=== PATIENT | female | born 1980 | race Caucasian/White ===

== ENCOUNTER → 2025-03-26 | Outpatient (CLI) | payer OTHER, SELFPAY ==
--- OUTSIDE RECORDS SUMMARY | 2025-03-26 22:18 | XMS RPT_ITS | CCD ---
Author Organization [facility] Inform ion Partnership [facility] Care Team Providers Care Pen Rider Name Role Phone Pcp, No Primary Care Provider Robbin Zambrano APRN.Juan Carlos GARRETT Primary Care Provider Gabriel Cueva DO Primary Care Provider Juan Carlos Zambrano APRN.CNP Primary Care Provider MEHREEN KESSLER Attending GABRIEL Monae Primary Care Unavailable Allergies Allergy Classification Reported Allergen(s) Allergy Type Date of Onset Reaction(s) Facility (8 sources) Bees Propensity to adverse reactions [address], [address] [facility] Work Phone: (5 sources) Shellfish Drug Allergy [address] [facility] Work Phone: (2 sources) Shellfish-Deriv ed Products Drug Allergy 3 [facility] Medications Current Medications Medication Drug Class(es) Dates Sig (Normalized) Sig (Original) Amphetamine / Dextroamphetamine (2 sources) Central Nervous System Stimulant Amphetamine-Dextr oamphetamine (ADDERALL PO) Take by mouth. 30mg PO in AM, 20mg PO PM Active busPIRone hydrochloride 5 mg oral tablet (6 sources) Start: 08-28-2022 take 1 tablet by mouth three times daily busPIRone (BUSPAR) 5 mg tablet Indications: Generalized anxiety disorder Take 1 tablet by mouth three times daily. 90 tablet 2 08/28/2022 Active Start: 07-07-2021 End: 08-28-2022 busPIRone (BUSPAR) 5 mg tabl et 10 mg twice daily. 0 07/07/2021 08/28/2022 Discontinued Comment on above: Take 1 tablet by alysha three times daily. 10 mg twice daily. metroNIDAZOLE 500 mg oral tablet (2 sources) Nitroimidazole Antimicrobial Start: 08-28-19 End: 09-04-19 take 1 tablet by mouth twice daily metroNIDAZOLE (FLAGYL) 500 mg tablet Indications: Trichomonas infection Take 1 tablet by mouth twice daily for 7 days. 14 tablet 0 08/28/2022 09/04/2022 Active Comment on above: Take 1 tablet by alysha twice daily for 7 days. omeprazole 40 mg delayed release oral capsule (7 sources) Proton Pump Inhibitor Start: 08-28-19 take 1 capsule by mouth once daily omeprazole (PRILOSEC) 40 mg capsule Take 1 capsule by mouth once daily. 30 capsule 2 08/28/2022 Active OMEPRAZOLE PO Ta ke by mouth. Active Comment on above: Take 1 capsule by mo [facility] once daily. Completed/Discontinued Medications Medication Drug Class(es) Dates Sig (Normalized) Sig (Original) 200 actuat albuterol 0.09 mg/actuat metered dose inhaler (4 sources) beta2-Adrenergic Agonist Start: 02-15-2007 End: 08-28-2022 albuterol 90 mcg/Actuation INHALATION Aero amphetamine aspartate 5 mg / amphetamine sulfate 5 mg / dextroamphetamine saccharate 5 mg / dextroamphetamine sulfate 5 mg oral tablet (1 source) Central Nervous System Stimulant Start: 06-07-2021 End: 08-28-2022 dextroamphetamine-am phetamine (ADDERALL) 20 mg tablet diphenhydrAMINE (2 sources) Histamine-1 Receptor Antagonist End: 02-01-2024 diphenhydrAMINE HCl (BENADRYL ALLERGY PO) Take by mouth. 02/01/2024 Discontinued (Entered in error) levonorgestrel 0.202995 mg/hr intrauterine system (4 sources) Progestin, Progestin-contain ing Intrauterine Device Start: 10-17-2007 End: 08-28-2022 levonorgestrel(MIREN A 20 MCG/24 HR INTRAUTERINE DEVICE) Indications: Encounter for insertion or removal of intrauterine contraceptive device Use as directed. 1 0 10/17/2007 08/28/2022 Discontinued Comment on above: Use as directed. levothyroxine (2 sources) l-Thyroxine End: 02-01-2024 Levothyroxine Sodium (SYNTHROID PO) Take by mouth. 02/01/2024 Discontinued (Entered in error) liothyronine (2 sources) l-Triiodothyronin e End: 02-01-2024 Liothyronine Sodium (CYTOMEL PO) Take by mouth. 02/01/2024 Discontinued (Entered in error) Lisdexamfetamine (2 sources) Central Nervous System Stimulant End: 02-01-2024 Lisdexamfetamine Dimesylate (VYVANSE PO) Take by mouth. 02/01/2024 Discontinued (Entered in error) pantoprazole (2 sources) Proton Pump Inhibitor End: 02-01-2024 Pantoprazole Sodium (PROTONIX PO) Take by mouth. 02/01/2024 Discontinued (Entered in error) Sgfgyook-Iu-Vqv-Fe-FA ORAL Tab (4 sources) Start: 02-15-2007 End: 08-28-2022 take 1 tablet by mouth once daily Gnjqudjn-Kj-Lnt-Fe-F A ORAL Tab TAKE ONE DAILY 0 02/15/2007 08/28/2022 Discontinued Start: 02-15-2007 take 1 tablet by alysha th once daily Bzlonbaq-It-Wtk-Fe-FA ORAL Tab TAKE ONE DAILY 0 02/15/2007 Active Comment on above: TAKE ONE DAILY sucralfate 1000 mg oral tablet (2 sources) Aluminum Complex Start: 02-01-2024 End: 02-01-2024 1 g, Oral, Once, On Sun02/01/24 at 1945, For 1 dose, Substituted for Sucralfate suspension. Give on an empty stomach (1 hr before meals, at bedtime). Separate all other meds by at least 2 hours (exception: antacids may be given only 30 minutes apart). Problems Active Problems Problem Classification Problem Date Documented Date Episodic/Chronic Abdominal pain (5 sources) Epigastric pain; Translations: [Epigastric pain] Onset: 02-01-2024 Episodic Anxiety disorders (6 sources) Generalized anxiety disorder; Translations: [Generalized anxiety disorder] Onset: 08-28-2022 Chronic Attention-deficit, conduct, and disruptive behavior disorders (6 sources) Attention deficit hyperactivity disorder; Translations: [Attention-deficit hyperactivity disorder, unspecified type] Onset: 08-28-2022 Chronic Menstrual disorders (2 sources) Dysmenorrhea; Translations: [Dysmenorrhea, unspecified] Onset: 06-21-2020 10-24-2022 Chronic Other infections; including parasitic (1 source) Infection by Trichomonas; Translations: [Trichomoniasis, unspecified] Episodic Other nutritional; endocrine; and metabolic disorders (2 sources) Body mass index 40+ - severely obese; Translations: [Body mass index (BMI) 40.0-44.9, adult] Onset: 06-21-2020 05-07-2022 Chronic Other screening for suspected conditions (not mental disorders or infectious disease) (10 sources) Patient encounter status; Translations: [Encounter for other screening for malignant neoplasm of breast] Episodic Residual codes; unclassified (1 source) Family history of cancer of colon; Translations: [Family history of malignant neoplasm of digestive organs] Episodic Past or Other Problems Problem Classification Problem Date Documented Da te Episodic/Chronic Other complications of (8 sources) High risk ; Translations: [Supervision of high risk , unspecified, unspecified trimester] Onset: 02-26-2007 02-26-2007 Episodic Other and delivery including normal (8 sources) Normal in primigravida; Translations: [Encounter for supervision of normal first , unspecified trimester] Onset: 02-15-2007 02-15-2007 Episodic Results Test Name Value Interpretation Reference Range Facil ity CBC W Auto Differential pane l (Bld)on 02-01-2024 Basophils (Bld) [#/Vol] 0.0 10*3/uL 0.0 - 0.2 10*3/uL [facility] Basophils/100 WBC (Bld) 0.2 % 0.0 - 2.0 % [facility] Eosinophils (Bld) [#/Vol] 0.0 10*3/uL 0.0 - 0.5 10*3/uL [facility] Eosinophils/100 WBC (Bld) 0.2 % 0.0 - 6.0 % [facility] Erythrocyte distribution width (RBC) [Ratio] 13.2 % 11.5 - 15.0 % [facility] Hematocrit (Bld) [Volume fraction] 46.0 % 35.0 - 47.0 % [facility] Hemoglobin (Bld) [Mass/Vol] 15.5 g/dL 11.7 - 16.0 g/dL [facility] Immature granulocytes (Bld) [#/Vol] 0.1 10*3/uL High NINF - 0.1 10*3/uL [facility] Immature granulocytes/100 WBC (Bld) 0.4 % 0.0 - 2.0 % [facility] Interpretation and review of laboratory results Abnormal [facility] Lymphocytes (Bld) [#/Vol] 1.7 10*3/uL 1.0 - 4.3 10*3/uL [facility] Lymphocytes/100 WBC (Bld) 10.8 % Low 15.0 - 45.0 % [facility] MCH (RBC) [Entitic mass] 29.7 pg 26.0 - 34.0 pg [facility] MCHC (RBC) [Mass/Vol] 33.7 % 30.5 - 36.0 % [facility] MCV (RBC) [Entitic vol] 88.1 fL 77.0 - 99.0 fL [facility] Monocytes (Bld) [#/Vol] 0.8 10*3/uL 0.0 - 0.9 10*3/uL [facility] Monocytes/100 WBC (Bld) 5.2 % 5.0 - 13.0 % [facility] Neutrophils (Bld) [#/Vol] 13.4 10*3/uL High 1.8 - 7.5 10*3/uL [facility] Neutrophils/100 WBC (Bld) 83.2 % High 38.0 - 82.0 % [facility] Nucleated RBC/100 WBC (Bld) [Ratio] 0.0 % [facility] Platelet mean volume (Bld) [Entitic vol] 11.1 fL 9.0 - 12.7 fL [facility] Comment on above: MPV is a calculated measurement using platelet volume ratio Platelets (Bld) [#/Vol] 186 10*3/uL 140 - 440 10*3/uL [facility] RBC (Bld) [#/Vol] 5.22 10*6/uL High 3.80 - 5.2 0 10*6/uL [facility] WBC (Bld) [#/Vol] 16.1 10*3/uL High 3.6 - 10.7 10*3/uL [facility] CBC WITH AUTO DIFFERENTIALon 02-01-2024 Basophils (Bld) [#/Vol] 0.0 10*3/uL Normal 0.0-0.2 [facility] Comment on above: Performed By: #### L [id number] #### Cad Operator: TERENCE SANABRIA ([id number]) MICHELLE DOMINGUEZ RITTMAN (SWRLAB) [address] [place] [address] Basophils/100 WBC (Bld) 0.2 % Normal 0.0-2.0 [facility] Comment on above: Performed By: #### L [id number] #### Cad Operator: TERENCE SANABRIA ([id number]) [facility] (SWRLAB) [address] [place] [address] Eosinophils (Bld) [#/Vol] 0.0 10*3/uL Normal 0.0-0.5 [facility] Comment on above: Performed By: #### L [id number] #### Cad Operator: TERENCE SANABRIA ([id number]) [facility] DOMINGUEZ [facility]ITTMAN (SWRLAB) [address] [place] [address] Eosinophils/100 WBC (Bld) 0.2 % Normal 0.0-6.0 [facility] Comment on above: Performed By: #### L [id number] #### Cad Operator: TERENCE SANABRIA ([id number]) MICHELLE DOMINGUEZ RITTMAN (SWRLAB) [address] [place] [address] Erythrocyte distribution width (RBC) [Ratio] 13.2 % Normal 11.5-15.0 [facility] Comment on above: Performed By: #### L [id number] #### Cad Operator: TERENCE SANABRIA ([id number]) [facility] DOMINGUEZ RITTMAN (SWRLAB) [address] [place] [address] Hematocrit (Bld) [Volume fraction] 46.0 % Normal 35.0-47.0 [facility] Comment on above: Performed By: #### L [id number] #### Cad Operator: TERENCE SANABRIA ([id number]) [facility] (SWRLAB) [address] [place] [address] Hemoglobin (Bld) [Mass/Vol] 15.5 g/dL Normal 11.7-16.0 [facility] Comment on above: Performed By: #### L [id number] #### Cad Operator: TERENCE SANABRIA ([id number]) [facility] (SWRLAB) [address] [place] [address] IMMATURE GRANS % 0.4 % Normal 0.0-2.0 [facility] Comment on above: Performed By: #### L [id number] #### Cad Operator: TERENCE SANABRIA ([id number]) [facility]INGUE[facility]ITTM[facility] (SWRLAB) [address] [place] [address] IMMATURE GRANS ABSOLUTE 0.1 10*3/uL High <0.1 [facility] Comment on above: Performed By: #### L [id number] #### Cad Operator: TERENCE SANABRIA ([id number]) [facility] (SWRLAB) [address] [place] [address] Lymphocytes (Bld) [#/Vol] 1.7 10*3/uL Normal 1.0-4.3 [facility] Comment on above: Performed By: #### L [id number] #### Cad Operator: TERENCE SANABRIA ([id number]) [facility] BOLIVARANGELICA RITTMAN (SWRLAB) [address] [place] [address] Lymphocytes/100 WBC (Bld) 10.8 % Low 15.0-45.0 [facility] Comment on above: Performed By: #### L [id number] #### Cad Operator: TERENCE SANABRIA ([id number]) [facility] (SWRLAB) [address] [place] [address] MCH (RBC) [Entitic mass] 29.7 pg Normal 26.0-34.0 [facility] Comment on above: Performed By: #### L [id number] #### Cad Operator: TERENCE SANABRIA ([id number]) [facility] (SWRLAB) [address] [place] [address] MCHC 33.7 % Normal 30.5-36.0 [facility] Comment on above: Performed By: #### L [id number] #### Cad Operator: TERENCE SANABRIA ([id number]) MICHELLE DOMINGUEZ RITTMAN (SWRLAB) [address] [place] [address] MCV (RBC) [Entitic vol] 88.1 fL Normal 77.0-99.0 [facility] Comment on above: Performed By: #### L [id number] #### Cad Operator: TERENCE SANABRIA ([id number]) [facility]UE[facility] (SWRLAB) [address] [place] [address] Monocytes (Bld) [#/Vol] 0.8 10*3/uL Normal 0.0-0.9 [facility] Comment on above: Performed By: #### L [id number] #### Cad Operator: TERENCE SANABRIA ([id number]) [facility] DOMINGUEZ RITTMAN (SWRLAB) [address] [place] [address] [place] Monocytes/100 WBC (Bld) 5.2 % Normal 5.0-13.0 [facility] Comment on above: Performed By: #### L [id number] #### Cad Operator: TERENCE SANABRIA ([id number]) MICHELLE DOMINGUEZ RITTMAN (SWRLAB) [address] [place] [address] [place] NEUTROPHILS ABSOLUTE 13.4 10*3/uL High 1.8-7.5 [facility] Comment on above: Performed By: #### L [id number] #### Cad Operator: TERENCE SANABRIA ([id number]) MICHELLE DOMINGUEZ RITTMAN (SWRLAB) [address] [place] [address] [place] Neutrophils/100 WBC (Bld) 83.2 % High 38.0-82.0 [facility] Comment on above: Performed By: #### L [id number] #### Cad Operator: TERENCE SANABRIA ([id number]) [facility]UE[facility]IT[facility] (SWRLAB) [address] [place] [address] NRBC 0.0 /100 WBCs Normal 0.0-2.0 [facility] Comment on above: Performed By: #### L [id number] #### Cad Operator: TERENCE SANABRIA ([id number]) [facility]UE[facility] RITTM[facility] (SWRLAB) [address] [place] [address] Platelet mean volume (Bld) [Entitic vol] 11.1 fL Normal 9.0-12.7 [facility] Comment on above: Result Comment: MPV is a calculated measurement using platelet volume ratio Performed By: #### L [id number] #### Cad Operator: TERENCE SANABRIA ([id number]) [facility]UE[facility] (SWRLAB) [address] [place] [address] [place] Platelets (Bld) [#/Vol] 186 10*3/uL Normal 140-440 [facility] Comment on above: Performed By: #### L [id number] #### Cad Operator: TERENCE SANABRIA ([id number]) [facility]UE[facility] (SWRLAB) [address] [place] [address] [place] RBC (Bld) [#/Vol] 5.22 10*6/uL High 3.80-5.20 [facility] Comment on above: Performed By: #### L [id number] #### Cad Operator: TERENCE SANABRIA ([id number]) [facility]UE[facility] (SWRLAB) [address] [place] [address] [place] WBC (Bld) [#/Vol] 16.1 10*3/uL High 3.6-10.7 [facility] Comment on above: Performed By: #### L [id number] #### Cad Operator: TERENCE SANABRIA ([id number]) [facility] DOMINGUE[facility] RITTM[facility] (SWRLAB) [address] [place] [address] COMPREHENSIVE METABOLIC PANE Lazaro 02-01-2024 Albumin [Mass/Vol] 4.6 g/dL Normal 3.5-5.0 [facility] Comment on above: Performed By: #### Margarita JUARES, LAB99, [id number] #### Cad Operator: TERENCE SANABRIA ([id number]) [facility] BOLIVARANGELICA RITTMAN (SWRLAB) [address] [place] [address] ALP [Catalytic activity/Vol] 53 U/L Normal 38-126 [facility] Comment on above: Performed By: #### Margarita JUARES, LAB99, [id number] #### Cad Operator: TERENCE SANABRIA ([id number]) [facility] (SWRLAB) [address] [place] [address] ALT [Catalytic activity/Vol] 28 U/L Normal 0-34 [facility] Comment on above: Performed By: #### Margarita JUARES, LAB99, [id number] #### Cad Operator: TERENCE SANABRIA ([id number]) [facility] (SWRLAB) [address] [place] [address] Anion gap [Moles/Vol] 11 mmol/L Normal 3-13 [facility] Comment on above: Performed By: #### Margarita JUARES, LAB99, [id number] #### Cad Operator: TERENCE SANABRIA ([id number]) [facility] BOLIVARANGELICA RITTMAN (SWRLAB) [address] [place] [address] AST [Catalytic activity/Vol] 43 U/L Normal 15-46 [facility] Comment on above: Performed By: #### Margarita JUARES, LAB99, [id number] #### Cad Operator: TERENCE SANABRIA ([id number]) [facility] (SWRLAB) [address] [place] [address] Bilirubin [Mass/Vol] 1.2 mg/dL Normal 0.2-1.3 [facility] Comment on above: Performed By: #### Margarita JUARES, LAB99, [id number] #### Cad Operator: TERENCE SANABRIA ([id number]) [facility] (SWRLAB) [address] [place] [address] [place] Calcium [Mass/Vol] 9.6 mg/dL Normal 8.4-10.4 [facility] Comment on above: Performed By: #### Margarita AB17, LAB99, [id number] #### Cad Operator: TERENCE SANABRIA ([id number]) [facility] (SWRLAB) [address] [place] [address] [place] Chloride [Moles/Vol] 102 mmol/L Normal 98-107 [facility] Comment on above: Performed By: #### Margarita JUARES, LAB99, [id number] #### Cad Operator: TERENCE SANABRIA ([id number]) [facility] BOLIVARANGELICA RITTMAN (SWRLAB) [address] [place] [address] [place] CO2 [Moles/Vol] 22 mmol/L Normal 22-30 [facility] Comment on above: Performed By: #### Margarita HANKS17, LAB99, [id number] #### Cad Operator: TERENCE SANABRIA ([id number]) [facility] DOMINGUEZ RITTMAN (SWRLAB) [address] [place] [address] [place] Creatinine [Mass/Vol] 0.92 mg/dL Normal 0.52-1.04 [facility] Comment on above: Performed By: #### Margarita AB17, LAB99, [id number] #### Cad Operator: TERENCE SANABRIA ([id number]) [facility] DOMINGUE[facility] RITTMAN (SWRLAB) [address] [place] [address] [place] GLOMERULAR FILTRATION RATE ML/MIN/1.73 SQ M.PREDICTED 79.9 mL/min/1.73m*2 Normal >60.0 [facility] Comment on above: Result Comment: Calc ulation based on the Chronic Kidney Disease Epidemiology Collaboration (CKD-EPI) equation refit without adjustment for race Performed By: #### Margarita AB17, LAB99, [id number] #### Cad Operator: TERENCE SANABRIA ([id number]) [facility] (SWRLAB) [address] Glucose [Mass/Vol] 108 mg/dL High 70-100 [facility] Comment on above: Performed By: #### Margarita JUARES, LAB99, [id number] #### Cad Operator: TERENCE SANABRIA ([id number]) [facility] DOMINGUEZ RITTMAN (SWRLAB) [address] Potassium [Moles/Vol] 5.3 mmol/L High 3.5-5.1 [facility] Comment on above: Performed By: #### Margarita JUARES, LAB99, [id number] #### Cad Operator: TERENCE SANABRIA ([id number]) [facility] DOM[facility]UE[facility] RITTM[facility] (SWRLAB) [address] [place] [address] Protein [Mass/Vol] 8.2 g/dL Normal 6.3-8.2 [facility] Comment on above: Performed By: #### Margarita JUARES, LAB99, [id number] #### Cad Operator: TERENCE SANABRIA ([id number]) [facility] (SWRLAB) [address] [place] [address] Sodium [Moles/Vol] 135 mmol/L Normal 135-145 [facility] Comment on above: Performed By: #### Margarita JUARES LAB99, [id number] #### Cad Operator: TERENCE SANABRIA ([id number]) [facility] DOM[facility]TM[facility] (SWRLAB) [address] [place] [address] Urea nitrogen [Mass/Vol] 15 mg/dL Normal 7-17 [facility] Comment on above: Performed By: #### Margarita JUARES, LAB99, [id number] #### Cad Operator: TERENCE SANABRIA ([id number]) [facility] (SWRLAB) [address] [place] [address] Comprehensive metabolic 1998 panelon 02-01-2024 Albumin [Mass/Vol] 4.6 g/dL 3.5 - 5.0 g/dL [facility] ALP [Catalytic activity/Vol] 53 U/L 38 - 126 U/L [facility] ALT [Catalytic activity/Vol] 28 U/L 0 - 34 U/L [facility] Anion gap [Moles/Vol] 11 mmol/L 3 - 13 mmol/L [facility] AST [Catalytic activity/Vol] 43 U/L 15 - 46 U/L [facility] Bilirubin [Mass/Vol] 1.2 mg/dL 0.2 - 1.3 mg/dL [facility] Calcium [Mass/Vol] 9.6 mg/dL 8.4 - 10. 4 mg/dL [facility] Chloride [Moles/Vol] 102 mmol/L 98 - 107 mmol/L [facility] CO2 [Moles/Vol] 22 mmol/L 22 - 30 mmol/L [facility] Creatinine [Mass/Vol] 0.92 mg/dL 0.52 - 1.04 mg/dL [facility] GFR/1.73 sq M.predicted MDRD (S/P/Bld) [Vol rate/Area] 79.9 mL/min/{1.73_m2} - PINF [facility] Comment on above: Calculation based on the Chronic Kidney Disease Epidemiology Collaboration (CKD-EPI) equation refit without adjustment for race Glucose [Mass/Vol] 108 mg/dL High 70 - 100 mg/dL [facility] Interpretation and review of laboratory results Abnormal [facility] Potassium [Moles/Vol] 5.3 mmol/L High 3.5 - 5.1 mmol/L [facility] Protein [Mass/Vol] 8.2 g/dL 6.3 - 8.2 g/dL [facility] Sodium [Moles/Vol] 135 mmol/L 135 - 145 mmol/L [facility] Urea nitrogen [Mass/Vol] 15 mg/dL 7 - 17 mg/dL [facility] ED Nursing Noteon 02-01-2024 ED Nursing Note Pt to ER with complaint of epigastric pain since 1pm today. Crampy pain that waxes and wanes with some nausea, no vomiting. Pt felt like she might pass out when she was getting in the car, but does not feel like that at this time. Pain 2/10 now, 10/10 earlier. Denies any radiation of pain. Pt ambulatoy on arrival with steady gait. Alert and oriented x 4. Skin warm and dry. Respirations even and unlabored. @ bedside. Call light in reach [facility] ED Provider Noteon ED Provider Note EMERGENCY DEPARTMENT ENCOUNTER Pt Name: Sneha De La Fuente Birthdate 1980 Date of evaluation: 02/01/2024 ED Provider: Mehreen Kessler DO CHIEF COMPLAINT Chief Complaint Patient presents with Abdominal Pain Nausea HISTORY OF PRESENT ILLNESS (Location/Symptom, Timing/Onset, Context/Setting, Quality, Duration, Modifying Factors, Severity) Note limiting factors. I wore appropriate PPE for the entirety of this encounter. HPI Sneha De La Fuente is a 43 y.o. who presents to the emergency department for resolved abdominal pain and nausea. Patient endorsing around lunchtime today eating ice cream and approximately an hour afterwards started to have epigastric burning/twisting sensation severe in nature for several hours without remittance associated with nausea sweatiness dizziness and general malaise. Patient has not had anything for symptom control. Patient endorsing intermittent waves of symptoms but symptoms have resolved. She has a history of GERD and peptic ulcer disease on omeprazole follows with gastroenterology. Abdominal surgical historyincludes tubal ligation. She denies any fevers, vomiting, diarrhea, UTI symptoms personal history of CAD, chest pain, family history of CAD, smoking history or exertional component. Nursing Notes were reviewed. Limitations to history: Outside historians: REVIEW OF SYSTEMS Review of Systems Pertinent positives and negatives as per HPI PAST MEDICAL HISTORY Past Medical History: Diagnosis Date Anxiety History of dilatation and curettage 09/09/2020 Hysteroscopy. Dilatation and curettage. Ablation Patient denies medical problems PONV (postoperative nausea and vomiting) Tubal ligation status SCHEDULED FOR THE SURGERY ON 04/26/2018 SURGICAL HISTORY Past Surgical History: Procedure Laterality Date DENTAL SURGERY x2 TONSILLECTOMY AND ADENOIDECTOMY (HISTORICAL) TUBAL LIGATION 2018 salpingectomy CURRENT MEDICATIONS Discharge Medication List as of 02/01/2024 9:34 PM CONTINUE these medications which have NOT CHANGED Details Amphetamine-Dextroam phetamine (ADDERALL PO) Take by mouth. 30mg PO in AM, 20mg PO PM, Historical Med OMEPRAZOLE PO Take by mouth., Historical Med ALLERGIES Shellfish-derived products FAMILY HISTORY Family History Problem Relation Name Age of Onset No Known Problems Daughter Diabetes Maternal Grandfather High Blood Pressure Mother Diabetes Mother No Known Problems Paternal Grandfather High Blood Pressure Father 67 High Blood Pressure Maternal Grandmother Rectal cancer Father 67 Diabetes Father 67 Diabetes Sister 47.00 appears type 2 Diabetes Paternal Grandmother SOCIAL HISTORY Social History Socioeconomic History Marital status: Single Tobacco Use Smoking status: Never Smokeless tobacco: Never Vaping Use Vaping status: Never Used Substance and Sexual Activity Alcohol use: Yes Comment: occasional Drug use: Never Social Determinants of Health Financial Resource Strain: Low Risk (06/21/2020) Received from [facility] Overall Financial Resource Strain (CARDIA) Difficulty of Paying Living Expenses: Not very hard Food Insecurity: No Food Insecurity (06/21/2020) Received from [facility] Hunger Vital Sign Worried About Running Out of Food in the Last Year: Never true Ran Out of Food in the Last Year: Never true Transportation Needs: No Transportation Needs (06/21/2020) Received from [facility] PRAPARE - Transportation Lack of Transportation (Medical): No Lack of Transportation (Non-Medical): No Physical Activity: Sufficiently Active (06/21/2020) Received from [facility] Exercise Vital Sign Days of Exercise per Week: 3 days Minutes of Exercise per Session: 60 min Stress: Stress Concern Present (06/21/2020) Received from [facility] [place] [facility] - Occupational Stress Questionnaire Feeling of Stress : To some extent Social Connections: Unknown (06/21/2020) Received from [facility] Social Connection and Isolation Panel [NHANES] Frequency of Communication with Friends and Family: More than three times a week Frequency of Social Gatherings with Friends and Family: Once a week Attends Sabianist Services: Patient declined Active Member of Clubs or Organizations: No Attends Club or Organization Meetings: Never Marital Status: Never PHYSICAL EXAM ED Triage Vitals [02/01/241909] Temp Heart Rate Resp BP 36 ?C (96.8 ?F) 90 16 (!) 129/91 SpO2 Temp Source Heart Rate Source Patient Position 100 % Temporal -- Sitting BP Location FiO2 (%) Right arm -- Physical Exam Vitals and nursing note reviewed. Constitutional: General: She is not in acute distress. Appearance: She is well-developed. She is not ill-appearing, toxic-appearing or diaphoretic. (more content not included)... Normal [facility] LIPASEon 02-01-2024 Lipase [Catalytic activity/Vol] 77 U/L Normal 23-300 [facility] Comment on above: Performed By: #### L AB17, LAB99, [id number] #### Cad Operator: TERENCE SANABRIA ([id number]) [facility] [address] [place] [address] Laboratory - Chemistry and C hemistry - challengeon 02-01-2024 Troponin I.cardiac [Mass/Vol] 0.024 ng/mL NINF - 0.034 ng/mL [facility] Lipase [Catalytic activity/Vol] 77 U/L 23 - 300 U/L [facility] Lipase [Catalytic activity/V ol]on 02-01-2024 Interpretation and review of laboratory results Normal [facility] No Panel Informationon 01-31 [facility] TROPONIN, WITH SERIAL REFLEX on 02-01-2024 Troponin I.cardiac [Mass/Vol] 0.024 ng/mL Normal <0.034 [facility] Comment on above: Result Comment: ALANA Clements COMMENTS: Patients with high levels of Biotin oral intake (ie >5 mg/day) may have falsely decreased Troponin levels. Performed By: #### L AB17, LAB99, [id number] #### Cad Operator: TERENCE SANABRIA ([id number]) [facility] [address] [place] [address] Troponin I.cardiac [Mass/Vol ]on 02-01-2024 Interpretation and review of laboratory results Normal [facility] Patients with high levels of Biotin oral intake (ie >5 mg/day) may have falsely decreased Troponin levels. [facility] CBC panel Auto (Bld)on 08-28 Erythrocyte distribution width (RBC) [Ratio] 13.2 % 11.5 - 15.0 % [facility] Hematocrit (Bld) [Volume fraction] 40.9 % 36.0 - 46.0 % [facility] Hemoglobin (Bld) [Mass/Vol] 13.1 g/dL 11.5 - 15.5 g/dL [facility] MCH (RBC) [Entitic mass] 28.7 pg 26.0 - 34.[address] [facility] MCHC (RBC) [Mass/Vol] 32.0 g/dL 30.5 - 36.0 g/dL [facility] MCV (RBC) [Entitic vol] 89.5 fL 80.0 - 100.[address] [facility] Platelet mean volume (Bld) [Entitic vol] 10.7 fL 9.0 - 12.[address] [facility] Platelets (Bld) [#/Vol] 217 10*3/uL 150 - 400 k/uL [facility] RBC (Bld) [#/Vol] 4.57 10*6/uL 3.90 - 5.2 0 m/uL [facility] WBC (Bld) [#/Vol] 7.32 10*3/uL 3.70 - 11. 00 k/uL [facility] Comprehensive metabolic 2000 panelon 08-28-2022 Albumin [Mass/Vol] 4.4 g/dL 3.9 - 4.9 g/dL Cl [facility] ALP [Catalytic activity/Vol] 55 U/L 34 - 123 U/L [facility] ALT With P-5'-P [Catalytic activity/Vol] 18 U/L 7 - 38 U/L [facility] Anion gap [Moles/Vol] 10 mmol/L 9 - 18 mmol/L [facility] AST With P-5'-P [Catalytic activity/Vol] 13 U/L 13 - 35 U/L [facility] Bilirubin [Mass/Vol] 0.3 mg/dL 0.2 - 1.3 mg/dL [facility] Calcium [Mass/Vol] 9.2 mg/dL 8.5 - 10. 2 mg/dL [facility] Chloride [Moles/Vol] 103 mmol/L 97 - 105 mmol/L [facility] CO2 [Moles/Vol] 25 mmol/L 22 - 30 mmol/L [facility] Creatinine [Mass/Vol] 0.95 mg/dL 0.58 - 0.96 mg/dL [facility] Estimated Glomerular Filtration Rate 78 mL/min/1.73m >=60 mL/min/1.73m [facility] Glucose [Mass/Vol] 102 mg/dL High 74 - 99 mg/dL [facility] Potassium [Moles/Vol] 4.0 mmol/L 3.7 - 5.1 mmol/L [facility] Protein [Mass/Vol] 7.3 g/dL 6.3 - 8.0 g/dL [facility] Sodium [Moles/Vol] 138 mmol/L 136 - 144 mmol/L [facility] Urea nitrogen [Mass/Vol] 12 mg/dL 7 - 21 mg/dL [facility] Lipid 1996 panelon 3 Cholesterol [Mass/Vol] 188 mg/dL <200 mg/dL [facility] Cholesterol in HDL [Mass/Vol] 54 mg/dL >39 mg/dL [facility] Cholesterol in LDL [Mass/Vol] 121 mg/dL High <100 mg/dL [facility] Cholesterol in LDL/Cholesterol in HDL [Mass ratio] 2.24 {ratio} <2.54 [facility] Cholesterol in VLDL [Mass/Vol] 13 mg/dL <30 mg/dL [facility] Cholesterol non HDL [Mass/Vol] 134 mg/dL High <130 mg/dL [facility] Cholesterol.total/Ch olesterol in HDL [Mass ratio] 3.48 {ratio} <5.10 [facility] Fasting Time [address] [facility] Triglyceride [Mass/Vol] 64 mg/dL <150 mg/dL [facility] TSH BLDon 08-28-2022 TSH Qn 0.983 m[IU]/L 0.270 - 4.200 mIU/L [facility] Urinalysis complete panel (U )on 08-28-2022 Bilirubin Ql (U) Negative Negative [facility] Clarity (Unsp spec) Clear Clear [facility] Color (U) Light Yellow Abnormal Yellow [facility] Epithelial cells LM.HPF (Urine sed) [#/Area] Few [facility] Glucose Test strip (U) [Mass/Vol] Negative Negative [facility] Hemoglobin Ql (U) Trace Abnormal Negative [facility] Ketones Ql (U) Negative Negative [facility] Leukocyte esterase Test strip Ql (U) 1+ Abnormal Negative [facility] Nitrite Ql (U) Negative Negative [facility] pH (U) 5.0 [pH] 5.0 - 8.0 [facility] Protein (U) [Mass/Vol] Negative Negative [facility] RBC LM.HPF (Urine sed) [#/Area] 0-3 /HPF 0-3 /HPF [facility] Specific gravity (U) [Rel density] Low 1.005 - 1.030 [facility] Trichomonas sp LM Ql (U) Present Abnormal None Seen /HPF [facility] Urobilinogen Ql (U) 0.2 EU/dL 0.2-1.0 EU/dL [facility] WBC LM.HPF (Urine sed) [#/Area] 0-5 /HPF 0-5 /HPF [facility] Vital Signs Date Time Vital Sign Value Performing Clinician Faci lity 02-01-2024 21:43-0400 Diastolic blood pressure 79 mm[Hg] Syndiant DO Work Phone: [employer] 02-01-2024 21:43-0400 Heart rate 81 /min Syndiant DO Work Phone: [employer] 02-01-2024 21:43-0400 Respiratory rate 16 /min Analiza Work Phone: [employer] 02-01-2024 21:43-0400 SaO2% (BldA) [Mass fraction] 99 % Analiza Work Phone: [employer] 02-01-2024 21:43-0400 Systolic blood pressure 124 mm[Hg] Get Me Listedy DO Work Phone: [employer] 02-01-2024 19:10-0400 Body height 167.6 cm Analiza Work Phone: [employer] 02-01-2024 19:10-0400 Body mass index (BMI) [Ratio] 34.7 kg/m2 Get Me Listedy DO Work Phone: [employer] 02-01-2024 19:10-0400 Body temperature 96.8 [degF] Get Me Listedy DO Work Phone: [employer] 02-01-2024 19:10-0400 Body weight 97.52 kg Syndiant DO Work Phone: [employer] 08-28-2022 10:19-0500 Body height 167.6 cm Juan Carlos Minna CLE[employer]ER [employer]ORAT[employer]QUIPMENT.EDITORIAL DIRECTOR Work Phone: [facility] 08-28-2022 10:19-0500 Body temperature 97.59 [degF] Juan Carlos Minna CLE[employer]ER [employer]AT[employer]QU[employer]MENT.EDITORIAL DIRECTOR Work Phone: [facility] 08-28-2022 10:19-0500 Body weight 112.58 kg Juan Carlos Minna CLE[employer]ER [employer] EQU[employer]MENT.EDITORIAL DIRECTOR Work Phone: [facility] 08-28-2022 10:19-0500 Diastolic blood pressure 78 mm[Hg] Juan Carlos Minna CLEANER [employer]AT[employer] EQUIPMENT.EDITORIAL DIRECTOR Work Phone: [facility] 08-28-2022 10:19-0500 Heart rate 97 /min Juan Carlos Minna CLE[employer] EQU[employer]MENT.EDITORIAL DIRECTOR Work Phone: [facility] 08-28-2022 10:19-0500 Respiratory rate 18 /min Juan Carlos Minna CLE[employer] EQU[employer]MENT.EDITORIAL DIRECTOR Work Phone: [facility] 08-28-2022 10:19-0500 SaO2% (BldA) [Mass fraction] 98 % Juan Carlos Minna CLE[employer]QU[employer]MENT.EDITORIAL DIRECTOR Work Phone: [facility] 08-28-2022 10:19-0500 Systolic blood pressure 122 mm[Hg] Juan Carlos Minna CLEANER [employer]AT[employer] EQUIPMENT.EDITORIAL DIRECTOR Work Phone: [facility] 05-15-2022 09:23-0400 Diastolic blood pressure 79 mm[Hg] David Garay MD Work Phone: [facility] 05-15-2022 09:23-0400 Systolic blood pressure 125 mm[Hg] David Garay MD Work Phone: [facility] 05-15-2022 08:50-0400 Body height 167.6 cm David Garay MD Work Phone: [facility] 05-15-2022 08:50-0400 Body temperature 98.2 [degF] David Garay MD Work Phone: [facility] 05-15-2022 08:50-0400 Heart rate 88 /min David Garay MD Work Phone: [facility] 05-15-2022 08:50-0400 Respiratory rate 16 /min David Garay MD Work Phone: [facility] 05-15-2022 08:50-0400 SaO2% (BldA) [Mass fraction] 99 % David Garay MD Work Phone: [facility] Encounters Encounter Date Encounter Type Care Provider Facility Start: 06-10-2024 End: 06-13-2024 ambulatory Juan Carlos Zambrano APRN.EDITORIAL DIRECTOR Work Phone: [facility] Start: 06-10-2024 End: 06-13-2024 Home visit Juan Carlos Zambrano APRN.EDITORIAL DIRECTOR Work Phone: [facility] Start: 02-05-2024 ambulatory Lyn Sam [facility] Start: 02-01-2024 End: 02-01-2024 Emergency department patient visit Mehreen Gates Claradarian Work Phone: [facility] Comment on above: Epigastric pain (Tiffanie mehreen Dx) Start: 08-30-2022 Telephone encounter Juan Carlos Zambrano APRN.EDITORIAL DIRECTOR Work Phone: [facility] Comment on above: Results Start: 08-28-2022 Telephone encounter Juan Carlos Zambrano APRN.EDITORIAL DIRECTOR Work Phone: [facility] Comment on above: Results Start: 08-28-2022 End: 08-28-2022 Patient encounter procedure Juan Carlos Zambrano APRN.EDITORIAL DIRECTOR Work Phone: [facility] Comment on above: Generalized anxiety disorder (Primary Dx); Epigastric pain; Attention deficit hyperactivity disorder (ADHD), unspecified ADHD type; Family hx of colon cancer; Screening for deficiency anemia; Encounter for screening for diabetes mellitus; Screening for lipid disorders; Screening for thyroid disorder; Encounter for hepatitis C screening test for low risk patient; Screening for blood or protein in urine Start: 05-19-2022 Documentation procedure Mammog regina Coordinator [facility] Start: 05-19-2022 Letter encounter Mammography Coordinator [facility] ANCILLARY AREA NOT LISTED Start: 05-18-2022 End: 05-18-2022 Subsequent hospital visit by physician Mammo/Bone Density [facility] Comment on above: Breast screening [Z1 2.39] Start: 05-15-2022 End: 05-15-2022 Patient encounter procedure David Garay MD Work Phone: [facility] Ob[facility]ne[facility] Comment on above: Encounter for annual routine gynecological examination (Primary Dx); Breast screening; Cervical cancer screening Procedures Date Procedure Procedure Detail Performing Clinician Start: 02-01-2024 Comprehensive metabo lic panel Alia Skiffey DO Work Phone: Start: 05-18-2022 Mammography Mammograph y Coordinator Start: 07-13-2021 Lipid 1996 panel - S kaylah or Plasma Mehreen Kessler DO Work Phone: Start: 06-21-2020 Microscopic observat ion [Identifier] in Cervix by Cyto stain Mehreen Kessler DO Work Phone: Plan of Treatment Date Care Activity Detail Author Start: 2041 RSV Immunization age d 60 or older (1 - 1-dose 60+ series) RSV Immunization aged 60 or older (1 - 1-dose 60+ series) [facility] Start: 11-03-2031 Zoster Vaccines (1 o f 2) Zoster Vaccines (1 of 2) [facility] Start: 06-28-2031 DTaP/Tdap/Td Vaccine s (3 - Td or Tdap) DTaP/Tdap/Td Vaccines (3 - Td or Tdap) [facility] Start: 06-28-[address] [facility] Start: 05-15-2027 PAP TESTING PAP TESTING [facility] Start: 07-13-2026 Lipid panel Lipid Panel [facility] Start: 05-15-2025 Screening for malign ant neoplasm of cervix Cervical Cancer Screening [facility] Start: 03-23-2024 Influenza vaccination Influenza Vacc ine (#1) [facility] Start: 07-23-2023 Behavioral Health Screening Behavioral Health Screening [facility] Start: 06-21-2023 Screening for malign ant neoplasm of cervix [facility] Start: 05-18-[address] [facility] Start: 05-18-2023 Screening for malign ant neoplasm of breast Mammogram Screening [facility] Start: 03-23-2023 COVID-19 Vaccine ( season) COVID-19 Vaccine ( season) [facility] Start: 01-19-2023 Influenza vaccination INFLUENZA (#1) [facility] Comment on above: Postponed from 03/23 (Declined at this time) Start: 08-28-2022 End: 10-28-2022 Hepatitis C virus Ab [Presence] in Serum [facility] Work Phone: Comment on above: Expected: 08/28/2022 , Expires: 10/28/2022 Start: 03-23-2022 Influenza vaccination INFLUENZA (#1) [facility] Start: [address] [facility] Start: 2021 Screening for malign ant neoplasm of breast Mammogram [facility] Start: 07-23-2021 DEPRESSION ASSESSMENT DEPRESSION ASS ESSMENT [facility] Start: 01-05-2021 COVID-19 VACCINE (3 - Booster for Moderna series) COVID-19 VACCINE (3 - Booster for Moderna series) [facility] Start: 10-22-2018 PAP TESTING PAP TESTING [facility] Start: 11-03-2011 [address] [facility] Start: 11-03-2011 Screening for malign ant neoplasm of cervix HPV/Cotest [facility] Start: 2000 Hepatitis B Vaccine (1 of 3 - 19+ 3-dose series) Hepatitis B Vaccine (1 of 3 - 19+ 3-dose series) [facility] Start: 2000 Hepatitis B Vaccines (1 of 3 - 19+ 3-dose series) Hepatitis B Vaccines (1 of 3 - 19+ 3-dose series) [facility] Start: 2000 Urine microalbumin profile DTAP,TDAP,TD (1 - Tdap) [facility] Start: 11-03-1999 Depression Screening Depression Scre ening [facility] Start: 11-03-1999 Diabetes mellitus screening Diabetes Screening [facility] Start: 11-03-1999 HEPATITIS C SCREENING HEPATITIS C [facility] Start: 11-03-1999 Hepatitis C screening Hepatitis C [facility] Start: 1994 Varicella vaccination Varicell a Vaccines (1 of 2 - + 2-dose series) [facility] Start: 1993 Depression Screening Depression Scre ening [facility] Start: 1982 MMR Vaccines (1 of 1 - Standard series) MMR Vaccines (1 of 1 - Standard series) [facility] Start: 1981 HEPATITIS B (1 of 3 - 3-dose series) HEPATITIS B (1 of 3 - 3-dose series) [facility] Start: 1981 HIV screening HIV Screening [facility] End: 07-10-2025 DBT Breast - bilateral screening SHAHNAZ SCREENING W NOLAN Radiology Routine Encounter for screening mammogram for breast cancer 1 Occurrences starting 06/10/2024 until 07/10/2025 [facility] Work Phone: Comment on above: 1 Occurrences starti ng 06/10/2024 until 07/10/2025 PAP FLUID CERVICAL SCREENING PAP FLUID CERVICAL SCREENING Lab Routine Cervical cancer screening Ordered: 05/15/2022 [facility] Work Phone: Comment on above: Ordered: 05/15/2022 End: 06-14-2023 Screening mammography bi 2-view breast inc cad SHAHNAZ SCREENING Radiology Routine Breast screening 1 Occurrences starting 05/15/2022 until 06/14/2023 [facility] Work Phone: Comment on above: 1 Occurrences starti ng 05/15/2022 until 06/14/2023 End: 05-18-2022 Screening mammography bi 2-view breast inc cad [facility] Work Phone: Comment on above: 1 Occurrences starti ng 05/18/2022 until 05/18/2022 [facility] Immunizations Immunization Date Immunization Notes Care Provider Fa rachel 06-28-2021 tetanus toxoid, redu alli diphtheria toxoid, and acellular pertussis vaccine, adsorbed Juan Carlos Zambrano CLEANER LABORATORY EQUIPMENT.EDITORIAL DIRECTOR Work Phone: [facility] 11-10-2020 Moderna SARS-CoV-2 Vaccination Mehreen Kessler DO Work Phone: [facility] 10-13-2020 Moderna SARS-CoV-2 Vaccination Mehreen Kessler DO Work Phone: [facility] 03-22-2020 tetanus toxoid, redu alli diphtheria toxoid, and acellular pertussis vaccine, adsorbed Juan Carlos Zambrano APRN.CNP Work Phone: [facility] 05-25-2007 influenza virus vaccine, unspecified formulation David Garay MD Work Phone: [facility] Work Phone: Payers Date Payer Category Payer Unknown [id number] 2021 Private Health Insurance [id number] 2021 Unknown [id number] Social History Date Type Detail Facility Start: 05-15-2022 Tobacco smoking status NHIS Never sm oked tobacco [facility] Start: 05-15-2022 Tobacco use and exposure Smoke less tobacco non-user [facility] Start: 05-15-2022 Alcohol intake Current non-dr engineering production liaison of alcohol (finding) [facility] Start: 1980 Sex Assigned At Not on file [facility] Start: 05-05-2022 End: 05-18-2022 Exposure to SARS-CoV-2 (event) Yes [facility] Start: 08-28-2022 End: 02-01-2024 Alcohol intake Current drinker of alcohol (finding) [facility] Start: 08-28-2022 Alcohol Comment social [facility] Start: 08-18-2022 End: 02-01-2024 History of Social function [facility] Start: 08-18-2022 End: 02-01-2024 Alcohol Use Disorder Identification Test - Consumption [AUDIT-C] [facility] How often to you hav e a drink containing alcohol? Monthly or less [facility] How many standard dr inks containing alcohol do you have on a typical day? 1 or 2 [facility] How often do you hav e 6 or more drinks on 1 occasion? Never [facility] Start: 02-01-2024 Alcohol Comment occasional [facility] Scr eening Assessment [address] [facility] Clinical Notes 05-15-2022 to 06-10-2024 Lyn Sam LPN - 02/05/2024 10:22 AM EDTDischarge InstructionsAttachAlexei Yajairacon Kessler, - 02/01/2024 6:58 PM EDTChbrett Zapata, KIMBERLY - 02/01/2024 6:58 PM EDT Note Date & Type Note Facility 06-10-2024 Note Patient Outreach (AG ACM) SNEHA DE LA FUENTE ([id number]) 1980 F Date Time Provider Department 06/10/24 JUAN CARLOS ZAMBRANO [facility] During your visit today, we recorded the following information about you: Allergies As of Date: 06/10/2024 Noted Allergy Reaction BEES 02/15/2007 4 - Hives 12 - Shortness of Breath Comments: PROBLEMS A CHILD ONLY SHELLFISH DERIVED 08/28/2022 4 - Hives Date Reviewed: 05/15/2022 Reviewed by: David Garay MD - Fully Assessed Visit Diagnosis:Encounter for screening mammogram for breast cancer [Z12.31] Order(s):SHAHNAZ SCREENING W NOLAN [[id number]] Order #: [id number] FUTURE Prescriptions as of 06/13/2024 - busPIRone (BUSPAR) 5 mg tablet Take 1 tablet by mouth three times daily. - omeprazole (PRILOSEC) 40 mg capsule Take 1 capsule by mouth once daily. Meds Comments as of 06/11/2007: All medications have been reviewed today/June 11, 2007 Taylor Talbert Lpn Problem List As Of Date 06/10/2024 Noted Resolved SUPERVIS NORMAL 1ST PREG [Z34.00] 02/15/2007 SUPRV HIGH-RISK PREG NOS [O09.90] 02/26/2007 Generalized anxiety disorder [F41.1] 08/28/2022 ADHD (attention deficit hyperactivity disorder)*08/28/2022 Encounter Status:Closed by ARIANA GUILLEN on 06/13/24 [facility] 02-05-2024 Note HNO ID: [id number] Author: LYN SAM LPN Service: ? Author Type: LICENSED NURSE Type: Progress Notes Filed: 02/05/2024 10:25 Note Text: ED Follow Up: Patient discharged from [facility] ED on 02/01/2024. 1. How are you feeling since your ED visit? Left message for pt to call office. Have your symptoms improved or resolved? Left message for pt to call office. 2. Were you prescribed any medications while in the ED or advised to stop any medication? Left message for pt to call office. - If yes, were you able to fill your prescriptions? Left message for pt to call office. -if stopped medication, what was the medication? Left message for pt to call office. 3. Were you advised to schedule a follow up appointment with your provider? Left message for pt to call office. - If no, Do you feel like you need an appointment scheduled? Left message for pt to call office. - If yes, Do you need this scheduled now or has this already been scheduled? Left message for pt to call office. 4. Were you able to contact the office or fiscal economist provider prior to your ED visit? Left message for pt to call office. 5. Is there anything else I can do for you today? Left message for pt to call office. [facility] 02-05-2024 History of Presen t illness Narrative ED Follow Up: Patient discharged from [facility] ED on 02/01/2024. 1. How are you feeling since your ED visit? Left message for pt to call office. Have your symptoms improved or resolved? Left message for pt to call office. 2. Were you prescribed any medications while in the ED or advised to stop any medication? Left message for pt to call office. - If yes, were you able to fill your prescriptions? Left message for pt to call office. -if stopped medication, what was the medication? Left message for pt to call office. 3. Were you advised to schedule a follow up appointment with your provider? Left message for pt to call office. - If no, Do you feel like you need an appointment scheduled? Left message for pt to call office. - If yes, Do you need this scheduled now or has this already been scheduled? Left message for pt to call office. 4. Were you able to contact the office or fiscal economist provider prior to your ED visit? Left message for pt to call office. 5. Is there anything else I can do for you today? Left message for pt to call office. documented in this encounter [facility] 02-05-2024 Note Patient Outreach (AG FAMPLE) SNEHA DE LA FUENTE ([id number]) 1980 F Date Time Provider Department 02/05/24 LYN SAM During your visit today, we recorded the following information about you: Lyn Sam LPN 02/05/2024 10:25 AM Signed ED Follow Up: Patient discharged from [facility] ED on 02/01/2024. 1. How are you feeling since your ED visit? Left message for pt to call office. Have your symptoms improved or resolved? Left message for pt to call office. 2. Were you prescribed any medications while in the ED or advised to stop any medication? Left message for pt to call office. - If yes, were you able to fill your prescriptions? Left message for pt to call office. -if stopped medication, what was the medication? Left message for pt to call office. 3. Were you advised to schedule a follow up appointment with your provider? Left message for pt to call office. - If no, Do you feel like you need an appointment scheduled? Left message for pt to call office. - If yes, Do you need this scheduled now or has this already been scheduled? Left message for pt to call office. 4. Were you able to contact the office or fiscal economist provider prior to your ED visit? Left message for pt to call office. 5. Is there anything else I can do for you today? Left message for pt to call office. Allergies As of Date: 02/05/2024 Noted Allergy Reaction BEES 02/15/2007 4 - Hives 12 - Shortness of Breath Comments: PROBLEMS A CHILD ONLY SHELLFISH DERIVED 08/28/2022 4 - Hives Date Reviewed: 05/15/2022 Reviewed by: David Garay MD - Fully Assessed Prescriptions as of 02/05/2024 - busPIRone (BUSPAR) 5 mg tablet Take 1 tablet by mouth three times daily. - omeprazole (PRILOSEC) 40 mg capsule Take 1 capsule by mouth once daily. Meds Comments as of 06/11/2007: All medications have been reviewed today/June 11, 2007 Taylor Talbert [employer] Problem List As Of Date 02/05/2024 Noted Resolved SUPERVIS NORMAL 1ST PREG [Z34.00] 02/15/2007 SUPRV HIGH-RISK PREG NOS [O09.90] 02/26/2007 Generalized anxiety disorder [F41.1] 08/28/2022 ADHD (attention deficit hyperactivity disorder)*08/28/2022 Encounter Status:Closed by LYN SAM on 02/05/24 [facility] 02-01-2024 Hospital Discharg e instructions Mehreen Kessler DO - 02/01/2024 9:34 PM EDT May take [id number] medications as needed for symptom control. Return for new or worsening symptoms. Follow-up with GI doctor for reevaluation. The following attachments cannot be sent through Care Everywhere.Severe Abdominal Pain Discharge Instructions, Adult (Italian)documented in this encounter [facility] 02-01-2024 Emergency department Note EMERGENCY DEPARTMENT ENCOUNTER Pt Name: Sneha De La Fuente Birthdate 1980 Date of evaluation: 02/01/2024 ED Provider: Mehreen Kessler DO CHIEF COMPLAINT Chief Complaint Patient presents with Abdominal Pain Nausea HISTORY OF PRESENT ILLNESS (Location/Symptom, Timing/Onset, Context/Setting, Quality, Duration, Modifying Factors, Severity) Note limiting factors. I wore appropriate PPE for the entirety of this encounter. HPI Sneha De La Fuente is a 43 y.o. who presents to the emergency department for resolved abdominal pain and nausea. Patient endorsing around lunchtime today eating ice cream and approximately an hour afterwards started to have epigastric burning/twisting sensation severe in nature for several hours without remittance associated with nausea sweatiness dizziness and general malaise. Patient has not had anything for symptom control. Patient endorsing intermittent waves of symptoms but symptoms have resolved. She has a history of GERD and peptic ulcer disease on omeprazole follows with gastroenterology. Abdominal surgical history includes tubal ligation. She denies any fevers, vomiting, diarrhea, UTI symptoms personal history of CAD, chest pain, family history of CAD, smoking history or exertional component. Nursing Notes were reviewed. Limitations to history: Outside historians: REVIEW OF SYSTEMS Review of Systems Pertinent positives and negatives as per HPI PAST MEDICAL HISTORY Past Medical History: Diagnosis Date Anxiety History of dilatation and curettage 09/09/2020 Hysteroscopy. Dilatation and curettage. Ablation Patient denies medical problems PONV (postoperative nausea and vomiting) Tubal ligation status SCHEDULED FOR THE SURGERY ON 04/26/2018 SURGICAL HISTORY Past Surgical History: Procedure Laterality Date DENTAL SURGERY x2 TONSILLECTOMY AND ADENOIDECTOMY (HISTORICAL) TUBAL LIGATION 2018 salpingectomy CURRENT MEDICATIONS Discharge Medication List as of 02/01/2024 9:34 PM CONTINUE these medications which have NOT CHANGED Details Amphetamine-Dextroamphetamine (ADDERALL PO) Take by mouth. 30mg PO in AM, 20mg PO PM, Historical Med OMEPRAZOLE PO Take by mouth., Historical Med ALLERGIES Shellfish-derived products FAMILY HISTORY Family History Problem Relation Name Age of Onset No Known Problems Daughter Diabetes Maternal Grandfather High Blood Pressure Mother Diabetes Mother No Known Problems Paternal Grandfather High Blood Pressure Father 67 High Blood Pressure Maternal Grandmother Rectal cancer Father 67 Diabetes Father 67 Diabetes Sister 47.00 appears type 2 Diabetes Paternal Grandmother SOCIAL HISTORY Social History Socioeconomic History Marital status: Single Tobacco Use Smoking status: Never Smokeless tobacco: Never Vaping Use Vaping status: Never Used Substance and Sexual Activity Alcohol use: Yes Comment: occasional Drug use: Never Social Determinants of Health Financial Resource Strain: Low Risk (06/21/2020) Received from [facility] Overall Financial Resource Strain (CARDIA) Difficulty of Paying Living Expenses: Not very hard Food Insecurity: No Food Insecurity (06/21/2020) Received from [facility] Hunger Vital Sign Worried About Running Out of Food in the Last Year: Never true Ran Out of Food in the Last Year: Never true Transportation Needs: No Transportation Needs (06/21/2020) Received from [facility] PRAPARE - Transportation Lack of Transportation (Medical): No Lack of Transportation (Non-Medical): No Physical Activity: Sufficiently Active (06/21/2020) Received from [facility] Exercise Vital Sign Days of Exercise per Week: 3 days Minutes of Exercise per Session: 60 min Stress: Stress Concern Present (06/21/2020) Received from [facility] [place] [employer] [facility] - Occupational Stress Questionnaire Feeling of Stress : To some extent Social Connections: Unknown (06/21/2020) Received from [facility] Social Connection and Isolation Panel [NHANES] Frequency of Communication with Friends and Family: More than three times a week Frequency of Social Gatherings with Friends and Family: Once a week Attends Sabianist Services: Patient declined Active Member of Clubs or Organizations: No Attends Club or Organization Meetings: Never Marital Status: Never PHYSICAL EXAM ED Triage Vitals [02/01/24 1910] Temp Heart Rate Resp BP 36 C (96.8 F) 90 16 (!) 129/91 SpO2 Temp Source Heart Rate Source Patient Position 100 % Temporal -- Sitting BP Location FiO2 (%) Right arm -- Physical Exam Vitals and nursing note reviewed. Constitutional: General: She is not in acute distress. Appearance: She is well-developed. She is not ill-appearing, toxic-appearing or diaphoretic. HENT: Head: Normocephalic and atraumatic. Mouth/Throat: Mouth: Mucous membranes are moist. Pharynx: Oropharynx is clear. Eyes: General: No scleral icterus. Pupils: Pupils are equal, round, and reactive to light. Cardiovascular: Rate and Rhythm: Normal rate and regular rhythm. Pulmonary: Effort: Pulmonary effort is normal. Breath sounds: Normal breath sounds. Abdominal: General: Bowel sounds are normal. Palpations: Abdomen is soft. Tenderness: There is no right CVA tenderness, left CVA tenderness, guarding or rebound. Negative signs include Cardoso's sign and McBurney's sign. Musculoskeletal: General: Normal range of motion. Skin: General: Skin is warm and dry. Neurological: General: No focal deficit present. Mental Status: She is alert and oriented to person, place, and time. Psychiatric: Mood and Affect: Mood normal. Behavior: Behavior normal. DIAGNOSTIC RESULTS RADIOLOGY (Per Emergency Physician): Interpretation per the Radiologist below, if available at the time of this note: No orders to display LABS: Labs Reviewed CBC WITH AUTO DIFFERENTIAL - Abnormal Result Value Auto WBC 16.1 (*) RBC 5.22 (*) Hemoglobin 15.5 Hematocrit 46.0 MCV 88.1 MCH 29.7 MCHC 33.7 RDW 13.2 Platelets 186 MPV 11.1 nRBC 0.0 Neutrophils Relative 83.2 (*) Lymphocytes Relative 10.8 (*) Monocytes Relative 5.2 Eosinophils Relative 0.2 Basophils Relative 0.2 Immature Grans % 0.4 Neutrophils Absolute 13.4 (*) Lymphocytes Absolute 1.7 Monocytes Absolute 0.8 Eosinophils Absolute 0.0 Basophils Absolute 0.0 Immature Grans Absolute 0.1 (*) COMPREHENSIVE METABOLIC PANEL - Abnormal SODIUM 135 POTASSIUM 5.3 (*) CHLORIDE 102 CARBON DIOXIDE 22 ANION GAP 11 UREA NITROGEN 15 CREATININE 0.92 GLUCOSE 108 (*) CALCIUM 9.6 AST (SGOT) 43 ALT 28 ALKALINE PHOSPHATASE 53 ALBUMIN 4.6 BILIRUBIN, TOTAL 1.2 TOTAL PROTEIN 8.2 eGFR 79.9 LIPASE - Normal LIPASE 77 TROPONIN, WITH SERIAL REFLEX - Normal TROPONIN I 0.024 Narrative: Patients with high levels of Biotin oral intake (ie >5 mg/day) may have falsely decreased Troponin levels. All other labs were within normal range or not returned as of this dictation. EMERGENCY DEPARTMENT COURSE and DIFFERENTIAL DIAGNOSIS/MDM: Vitals: Vitals: 02/01/24 1910 02/01/24 2143 BP: (!) 129/91 124/79 BP Location: Right arm Patient Position: Sitting Pulse: 90 81 Resp: 16 16 Temp: 36 C (96.8 F) TempSrc: Temporal SpO2: 100% 99% Weight: 97.5 kg (215 lb) Height: 1.676 m (5' 6) Medications sucralfate (Carafate) tablet 1 g (1 g Oral Given 02/01/241952) 43-year-old female presented to the ED for abdominal pain and nausea detailed above. Exam as above. Will evaluate patient for number of etiologies including but not limited to pancreatitis, electrolyte abnormality, ACS. Patient requesting to try Carafate. Workup revealed lipase within normal range troponin within normal range, CBC with leukocytosis 16.1 otherwise grossly unremarkable, CMP mild hyperkalemia 5.3 otherwise grossly unremarkable. Would not repeat troponin level as discomfort was present for more than 4 hours ago. On reevaluation patient continues to feel well would like to go home and follow-up outpatient with her pegger dobby looms. I did discuss lab work results with patient. I do not believe patient is having a life-threatening or emergent condition. No indication for further testing at this time. Patient stable for discharge with supportive care, return precautions, outpatient follow-up with personal pegger dobby looms. Patient in agreement with plan. SCREENINGS PROCEDURES: Unless otherwise noted below, none Procedures CRITICAL CARE TIME FINAL IMPRESSION 1. Epigastric pain DISPOSITION Discharge 02/01/2024 09:33:53 PM PATIENT REFERRED TO: No follow-up provider specified. DISCHARGE MEDICATIONS: Discharge Medication List as of 02/01/2024 9:34 PM (Comment: Please note this report has been produced using speech recognition software and may contain errors related to that system including errors in grammar, punctuation, and spelling, as well as words and phrases that may be inappropriate. If there are any questions or concerns please feel free to contact the dictating provider for clarification.) Mehreen Kessler DO (electronically signed) Emergency Medicine Provider Mehreen Kessler DO 02/02/24 0035 Pt to ER with complaint of epigastric pain since 1pm today. Crampy pain that waxes and wanes with some nausea, no vomiting. Pt felt like she might pass out when she was getting in the car, but does not feel like that at this time. Pain 2/10 now, 10/10 earlier. Denies any radiation of pain. Pt ambulatoy on arrival with steady gait. Alert and oriented x 4. Skin warm and dry. Respirations even and unlabored. @ bedside. Call light in reach documented in this encounter [facility] 02-01-2024 Emergency department Triage note Pt to ER with complaint of epigastric pain since 1pm today. Crampy pain that waxes and wanes with some nausea, no vomiting. Pt felt like she might pass out when she was getting in the car, but does not feel like that at this time. Pain 2/10 now, 10/10 earlier. Denies any radiation of pain. Pt ambulatoy on arrival with steady gait. Alert and oriented x 4. Skin warm and dry. Respirations even and unlabored. @ bedside. Call light in reach [facility] 02-01-2024 Physician Emergency department Note EMERGENCY DEPARTMENT ENCOUNTER Pt Name: Sneha De La Fuente Birthdate 1980 Date of evaluation: 02/01/2024 ED Provider: Mehreen Kessler DO CHIEF COMPLAINT Chief Complaint Patient presents with Abdominal Pain Nausea HISTORY OF PRESENT ILLNESS (Location/Symptom, Timing/Onset, Context/Setting, Quality, Duration, Modifying Factors, Severity) Note limiting factors. I wore appropriate PPE for the entirety of this encounter. HPI Sneha De La Fuente is a 43 y.o. who presents to the emergency department for resolved abdominal pain and nausea. Patient endorsing around lunchtime today eating ice cream and approximately an hour afterwards started to have epigastric burning/twisting sensation severe in nature for several hours without remittance associated with nausea sweatiness dizziness and general malaise. Patient has not had anything for symptom control. Patient endorsing intermittent waves of symptoms but symptoms have resolved. She has a history of GERD and peptic ulcer disease on omeprazole follows with gastroenterology. Abdominal surgical history includes tubal ligation. She denies any fevers, vomiting, diarrhea, UTI symptoms personal history of CAD, chest pain, family history of CAD, smoking history or exertional component. Nursing Notes were reviewed. Limitations to history: Outside historians: REVIEW OF SYSTEMS Review of Systems Pertinent positives and negatives as per HPI PAST MEDICAL HISTORY Past Medical History: Diagnosis Date Anxiety History of dilatation and curettage 09/09/2020 Hysteroscopy. Dilatation and curettage. Ablation Patient denies medical problems PONV (postoperative nausea and vomiting) Tubal ligation status SCHEDULED FOR THE SURGERY ON 04/26/2018 SURGICAL HISTORY Past Surgical History: Procedure Laterality Date DENTAL SURGERY x2 TONSILLECTOMY AND ADENOIDECTOMY (HISTORICAL) TUBAL LIGATION 2018 salpingectomy CURRENT MEDICATIONS Discharge Medication List as of 02/01/2024 9:34 PM CONTINUE these medications which have NOT CHANGED Details Amphetamine-Dextroamphetamine (ADDERALL PO) Take by mouth. 30mg PO in AM, 20mg PO PM, Historical Med OMEPRAZOLE PO Take by mouth., Historical Med ALLERGIES Shellfish-derived products FAMILY HISTORY Family History Problem Relation Name Age of Onset No Known Problems Daughter Diabetes Maternal Grandfather High Blood Pressure Mother Diabetes Mother No Known Problems Paternal Grandfather High Blood Pressure Father 67 High Blood Pressure Maternal Grandmother Rectal cancer Father 67 Diabetes Father 67 Diabetes Sister 47.00 appears type 2 Diabetes Paternal Grandmother SOCIAL HISTORY Social History Socioeconomic History Marital status: Single Tobacco Use Smoking status: Never Smokeless tobacco: Never Vaping Use Vaping status: Never Used Substance and Sexual Activity Alcohol use: Yes Comment: occasional Drug use: Never Social Determinants of Health Financial Resource Strain: Low Risk (06/21/2020) Received from [facility] Overall Financial Resource Strain (CARDIA) Difficulty of Paying Living Expenses: Not very hard Food Insecurity: No Food Insecurity (06/21/2020) Received from [facility] Hunger Vital Sign Worried About Running Out of Food in the Last Year: Never true Ran Out of Food in the Last Year: Never true Transportation Needs: No Transportation Needs (06/21/2020) Received from [facility] PRAPARE - Transportation Lack of Transportation (Medical): No Lack of Transportation (Non-Medical): No Physical Activity: Sufficiently Active (06/21/2020) Received from [facility] Exercise Vital Sign Days of Exercise per Week: 3 days Minutes of Exercise per Session: 60 min Stress: Stress Concern Present (06/21/2020) Received from [facility] [place] [employer] - Occupational Stress Questionnaire Feeling of Stress : To some extent Social Connections: Unknown (06/21/2020) Received from [facility] Social Connection and Isolation Panel [NHANES] Frequency of Communication with Friends and Family: More than three times a week Frequency of Social Gatherings with Friends and Family: Once a week Attends Sabianist Services: Patient declined Active Member of Clubs or Organizations: No Attends Club or Organization Meetings: Never Marital Status: Never PHYSICAL EXAM ED Triage Vitals [02/01/24 1910] Temp Heart Rate Resp BP 36 C (96.8 F) 90 16 (!) 129/91 SpO2 Temp Source Heart Rate Source Patient Position 100 % Temporal -- Sitting BP Location FiO2 (%) Right arm -- Physical Exam Vitals and nursing note reviewed. Constitutional: General: She is not in acute distress. Appearance: She is well-developed. She is not ill-appearing, toxic-appearing or diaphoretic. HENT: Head: Normocephalic and atraumatic. Mouth/Throat: Mouth: Mucous membranes are moist. Pharynx: Oropharynx is clear. Eyes: General: No scleral icterus. Pupils: Pupils are equal, round, and reactive to light. Cardiovascular: Rate and Rhythm: Normal rate and regular rhythm. Pulmonary: Effort: Pulmonary effort is normal. Breath sounds: Normal breath sounds. Abdominal: General: Bowel sounds are normal. Palpations: Abdomen is soft. Tenderness: There is no right CVA tenderness, left CVA tenderness, guarding or rebound. Negative signs include Cardoso's sign and McBurney's sign. Musculoskeletal: General: Normal range of motion. Skin: General: Skin is warm and dry. Neurological: General: No focal deficit present. Mental Status: She is alert and oriented to person, place, and time. Psychiatric: Mood and Affect: Mood normal. Behavior: Behavior normal. DIAGNOSTIC RESULTS RADIOLOGY (Per Emergency Physician): Interpretation per the Radiologist below, if available at the time of this note: No orders to display LABS: Labs Reviewed CBC WITH AUTO DIFFERENTIAL - Abnormal Result Value Auto WBC 16.1 (*) RBC 5.22 (*) Hemoglobin 15.5 Hematocrit 46.0 MCV 88.1 MCH 29.7 MCHC 33.7 RDW 13.2 Platelets 186 MPV 11.1 nRBC 0.0 Neutrophils Relative 83.2 (*) Lymphocytes Relative 10.8 (*) Monocytes Relative 5.2 Eosinophils Relative 0.2 Basophils Relative 0.2 Immature Grans % 0.4 Neutrophils Absolute 13.4 (*) Lymphocytes Absolute 1.7 Monocytes Absolute 0.8 Eosinophils Absolute 0.0 Basophils Absolute 0.0 Immature Grans Absolute 0.1 (*) COMPREHENSIVE METABOLIC PANEL - Abnormal SODIUM 135 POTASSIUM 5.3 (*) CHLORIDE 102 CARBON DIOXIDE 22 ANION GAP 11 UREA NITROGEN 15 CREATININE 0.92 GLUCOSE 108 (*) CALCIUM 9.6 AST (SGOT) 43 ALT 28 ALKALINE PHOSPHATASE 53 ALBUMIN 4.6 BILIRUBIN, TOTAL 1.2 TOTAL PROTEIN 8.2 eGFR 79.9 LIPASE - Normal LIPASE 77 TROPONIN, WITH SERIAL REFLEX - Normal TROPONIN I 0.024 Narrative: Patients with high levels of Biotin oral intake (ie >5 mg/day) may have falsely decreased Troponin levels. All other labs were within normal range or not returned as of this dictation. EMERGENCY DEPARTMENT COURSE and DIFFERENTIAL DIAGNOSIS/MDM: Vitals: Vitals: 02/01/24 1910 02/01/24 2143 BP: (!) 129/91 124/79 BP Location: Right arm Patient Position: Sitting Pulse: 90 81 Resp: 16 16 Temp: 36 C (96.8 F) TempSrc: Temporal SpO2: 100% 99% Weight: 97.5 kg (215 lb) Height: 1.676 m (5' 6) Medications sucralfate (Carafate) tablet 1 g (1 g Oral Given 02/01/241952) 43-year-old female presented to the ED for abdominal pain and nausea detailed above. Exam as above. Will evaluate patient for number of etiologies including but not limited to pancreatitis, electrolyte abnormality, ACS. Patient requesting to try Carafate. Workup revealed lipase within normal range troponin within normal range, CBC with leukocytosis 16.1 otherwise grossly unremarkable, CMP mild hyperkalemia 5.3 otherwise grossly unremarkable. Would not repeat troponin level as discomfort was present for more than 4 hours ago. On reevaluation patient continues to feel well would like to go home and follow-up outpatient with her pegger dobby looms. I did discuss lab work results with patient. I do not believe patient is having a life-threatening or emergent condition. No indication for further testing at this time. Patient stable for discharge with supportive care, return precautions, outpatient follow-up with personal pegger dobby looms. Patient in agreement with plan. SCREENINGS PROCEDURES: Unless otherwise noted below, none Procedures CRITICAL CARE TIME FINAL IMPRESSION 1. Epigastric pain DISPOSITION Discharge 02/01/2024 09:33:53 PM PATIENT REFERRED TO: No follow-up provider specified. DISCHARGE MEDICATIONS: Discharge Medication List as of 02/01/2024 9:34 PM (Comment: Please note this report has been produced using speech recognition software and may contain errors related to that system including errors in grammar, punctuation, and spelling, as well as words and phrases that may be inappropriate. If there are any questions or concerns please feel free to contact the dictating provider for clarification.) Mehreen Kessler DO (electronically signed) Emergency Medicine Provider Mehreen Kessler DO 02/02/24 0035 [facility] 08-30-2022 Miscellaneous Notes Pt aware Ruth Vernon MA ----- Message from Juan Carlos Zambrano APRN.EDITORIAL DIRECTOR sent at 08/29/2022 12:25 PM EST ----- Hep c negative documented in this encounter [facility] 08-28-2022 Miscellaneous Notes Called pt let her know the results and information that antibiotic was sent in and needs to notify partner Ruth Vernon MA Called pt left VM for her to call the office back for results Ruth Vernon MA ----- Message from Juan Carlos Zambrano APRN.EDITORIAL DIRECTOR sent at 08/28/2022 12:46 PM EST ----- CMP okay sugar mildly elevated, decrease sugar and carbs Lipids okay LDL mildly elevated Tsh wnl Cbc wnl Let pt know that her urine tested positive for trichomonas. This is commonly seen in the vaginal area known as an STD. But the same can also infect the urethra. She will need be treated. Lab called pt has positive Trichomonas Ruth Vernon MA documented in this encounter [facility] 08-28-2022 Instructions Juan Carlos Zambrano APRN.TAMI - 08/28/2022 11:16 AM EST ASSESSMENT/PLAN: 1. Generalized anxiety disorder - ICD9: 300.02, ICD10: F41.1 (primary diagnosis) - chronic, restart buspar 5 mg 3 times a day. - BUSPIRONE 5 MG TABLET 2. Epigastric pain - ICD9: 789.06, ICD10: R10.13 Differential Diagnosis includes GERD, PUD, Gastritis, IBS, and Gall bladder colic/cholelithiasis - Begin treatment with Prilosec 30 mg QD - Increase fiber in diet - [place] low residue diet - Referral to Gastroenterology - Discussed lifestyle modifications including losing weight, limiting caffeine, no meals three hours before sleep, and head of bed elevation - Refer for GI consult - CONSULT TO GASTROENTEROLOGY 3. Attention deficit hyperactivity disorder (ADHD), unspecified ADHD type - ICD9: 314.01, ICD10: F90.9 - Chronic stable - follow up with psych if interested in restarting adderall 4. Family hx of colon cancer - ICD9: V16.0, ICD10: Z80.0 - CONSULT TO GASTROENTEROLOGY 5. Screening for deficiency anemia - ICD9: V78.1, ICD10: Z13.0 - CBC 6. Encounter for screening for diabetes mellitus - ICD9: V77.1, ICD10: Z13.1 - COMP METABOLIC PANEL 7. Screening for lipid disorders - ICD9: V77.91, ICD10: Z13.220 - LIPID PANEL BASIC 8. Screening for thyroid disorder - ICD9: V77.0, ICD10: Z13.29 - TSH BLD 9. Encounter for hepatitis C screening test for low risk patient - ICD9: V73.89, ICD10: Z11.59 - HEP C AB IA W/CONF SCRN 10. Screening for blood or protein in urine - ICD9: V82.9, ICD10: Z13.89 - URINALYSIS WITH MICROSCOPIC, REFLEX CULTURE Juan Carlos Zambrano APRN.EDITORIAL DIRECTOR documented in this encounter [facility] 08-28-2022 History of Presen t illness Narrative This note was created using [employer]. Subjective Sneha De La Fuente is a 41 year old female here today to establish care. Previous PCP Dr Cueva. PMH anxiety, ADHD, asthma. She report burning in her epigastric area. States she started taking otc omeprazole. Reports her father just past away from colon cancer. Epigastric pain: pt symptoms started last Week. Burning sensation in epigastric area right below chest bone. Reports a gnawing type discomfort. States anything she eats or drinks worsens symptoms. She reports drinking water feels like she has to squeeze it through. This is not constant. Mostly associated with meals. Reports she did start a new diet 3 wks ago. Reports increase in green vegetable and only chicken and turkey. She has tried simethocone and tums and omeprazole which has not helped. She just started taking the omeprazole 2 days ago. 20 mg. No change in symptoms so far. Anxiety/ADHD: was previously on Buspar and adderall. States she stopped taking both last April. She use to see Psychiatry, Dr Cuenca in [place] and he was prescribing the adderall for her. States she has been on lexapro and Prozac in the past and did not like the way they made her feel. States she was tired all the time. Reports buspar worked best. She is in school and feels difficulty concentrating and staying focus. Asthma: reports being dx as a child. Exercise induced. Reports she has not needed anything for this in years. Hx allergies: shellfish and bees. Reports has not had epipen for years. States with bee she had hives and swelling in neck and eyes. With shellfish she gets tingling in her lips. Preventative: she is seeing Dr Garay for LOG FEEDER. Hx tubal ligation. She does not smoke, social alcohol use. She does not exercise. ALLERGIES Allergen Reactions Bees Hives, Shortness of Breath PROBLEMS A CHILD ONLY Current Outpatient Medications Medication Sig Dispense Refill busPIRone (BUSPAR) 5 mg tablet 10 mg twice daily. dextroamphetamine-amphetamine (ADDERALL) 20 mg tablet levonorgestrel(MIRENA 20 MCG/24 HR INTRAUTERINE DEVICE) Use as directed. 1 0 Eshwprdr-Gn-Hyk-Fe-FA ORAL Tab TAKE ONE DAILY 0 albuterol 90 mcg/Actuation INHALATION Aero 0 No current facility-administered medications for this visit. ACTIVE PROBLEM LIST Supervision of Normal First Unspecified High-Risk PAST MEDICAL HISTORY Diagnosis Date ADHD (attention deficit hyperactivity disorder) Generalized anxiety disorder Unspecified asthma(493.90) PAST SURGICAL HISTORY Procedure Laterality Date LIGATE FALLOPIAN TUBE removal PAST SURGICAL HISTORY OF WISDOM TEETH TONSILLECTOMY PRIMARY/SECONDARY <AGE 13 Tonsillectomy/ADNOIDS Social History Tobacco Use Smoking status: Never Smokeless tobacco: Never Substance Use Topics Alcohol use: Yes Comment: social Drug use: No Family History Problem Relation Age of Onset Arthritis Mother Asthma Mother Hypertension Mother Diabetes Mother Hypertension Father Colon Cancer Father Diabetes Sister Hypertension Maternal Grandmother Arthritis Maternal Grandmother Asthma Maternal Grandmother Lipids Maternal Grandmother Thyroid Maternal Grandmother Diabetes Maternal Grandfather Asthma Maternal Grandfather THE LAST 2 WEEKS, HAVE YOU BEEN BOTHERED BY ANY OF THE FOLLOWING? - Little interest or pleasure in doing things 0 NOT AT ALL Feeling down, depressed, or hopeless 0 Trouble falling or staying asleep, or sleeping too much 3 Feeling tired or having little energy 3 Poor appetite or overeating 0 Feeling bad yourself-you are a failure or have let yourself or others 0 Trouble concentrating, like reading the paper or watching TV 3 Moving/speaking slowly (others notice) OR being more fidgety/restless 2 Thoughts that you would be better off or of hurting yourself 0 PHQ TOTAL SCORE = 11 PHQ problems effect on difficulty of work, home, and social activity: 3 - VERY DIFFICULT Feeling nervous, anxious, or on edge 2 Over half the days Not being able to stop or control worrying 3 Nearly every day Worrying too much about different things 3 Nearly every day Trouble relaxing 3 Nearly every day Being so restless that it's hard to sit still 2 Over half the days Being easily annoyed or irritable 2 Over half the days Feeling afraid as if something awful might happen 0 Not at all sure NATHAN-7 Anxiety Score 15 If you checked off any problems, how difficult have these problems made it for you to do your work, take care of things at home, or get along with other people? Very difficult Review of Systems Constitutional: Negative for chills, fatigue and fever. HENT: Negative. Negative for congestion. Respiratory: Negative for cough, shortness of breath and wheezing. Cardiovascular: Negative for chest pain, palpitations and leg swelling. Gastrointestinal: Positive for abdominal pain. Negative for abdominal distention, blood in stool, constipation, diarrhea, nausea and vomiting. See HPI Endocrine: Negative for cold intolerance, heat intolerance, polydipsia, polyphagia and polyuria. Genitourinary: Negative for difficulty urinating, dysuria, frequency, hematuria and pelvic pain. Reports cloudy urine. No other symptoms Musculoskeletal: Negative. Skin: Negative for color change and rash. Neurological: Negative for dizziness and headaches. Hematological: Does not bruise/bleed easily. Psychiatric/Behavioral: Negative for behavioral problems, dysphoric mood and sleep disturbance. The patient is nervous/anxious. Objective BP 122/78 (BP Site: Right Arm, BP Position: Sitting, BP Cuff Size: Large Adult) Pulse 97 Temp 36.4 C (97.6 F) (Oral) Resp 18 Ht 167.6 cm (5' 6) Wt 112.6 kg (248 lb 3.2 oz) LMP 04/25/2022 SpO2 98% BMI 40.06 kg/m Physical Exam Vitals and nursing note reviewed. Constitutional: General: She is not in acute distress. Appearance: Normal appearance. She is obese. She is not ill-appearing. HENT: Head: Normocephalic and atraumatic. Cardiovascular: Rate and Rhythm: Normal rate and regular rhythm. Pulses: Normal pulses. Heart sounds: Normal heart sounds. Pulmonary: Effort: Pulmonary effort is normal. No respiratory distress. Breath sounds: Normal breath sounds. No wheezing, rhonchi or rales. Abdominal: General: Bowel sounds are normal. Palpations: Abdomen is soft. Tenderness: There is no abdominal tenderness. There is no right CVA tenderness, left CVA tenderness, guarding or rebound. Skin: General: Skin is warm and dry. Neurological: Mental Status: She is alert and oriented to person, place, and time. Psychiatric: Mood and Affect: Mood normal. Behavior: Behavior normal. Thought Content: Thought content normal. Judgment: Judgment normal. ASSESSMENT/PLAN: 1. Generalized anxiety disorder - ICD9: 300.02, ICD10: F41.1 (primary diagnosis) - chronic, restart buspar 5 mg 3 times a day. - BUSPIRONE 5 MG TABLET 2. Epigastric pain - ICD9: 789.06, ICD10: R10.13 Differential Diagnosis includes GERD, PUD, Gastritis, IBS, and Gall bladder colic/cholelithiasis - Begin treatment with Prilosec 30 mg QD - Increase fiber in diet - [place] low residue diet - Referral to Gastroenterology - Discussed lifestyle modifications including losing weight, limiting caffeine, no meals three hours before sleep, and head of bed elevation - Refer for GI consult - CONSULT TO GASTROENTEROLOGY 3. Attention deficit hyperactivity disorder (ADHD), unspecified ADHD type - ICD9: 314.01, ICD10: F90.9 - Chronic stable - follow up with psych if interested in restarting adderall 4. Family hx of colon cancer - ICD9: V16.0, ICD10: Z80.0 - CONSULT TO GASTROENTEROLOGY 5. Screening for deficiency anemia - ICD9: V78.1, ICD10: Z13.0 - CBC 6. Encounter for screening for diabetes mellitus - ICD9: V77.1, ICD10: Z13.1 - COMP METABOLIC PANEL 7. Screening for lipid disorders - ICD9: V77.91, ICD10: Z13.220 - LIPID PANEL BASIC 8. Screening for thyroid disorder - ICD9: V77.0, ICD10: Z13.29 - TSH BLD 9. Encounter for hepatitis C screening test for low risk patient - ICD9: V73.89, ICD10: Z11.59 - HEP C AB IA W/CONF SCRN 10. Screening for blood or protein in urine - ICD9: V82.9, ICD10: Z13.89 - URINALYSIS WITH MICROSCOPIC, REFLEX CULTURE Juan Carlos Zambrano APRN.EDITORIAL DIRECTOR documented in this encounter [facility] 05-19-2022 Miscellaneous Notes [facility] [address] [place] [address] May 19, 2022 PID: [id number] Sneha De La Fuente [address] [place] [id number] Dear Ms. De La Fuente, We are pleased to inform you that the results of your recent breast imaging exam on 05/18/2022 are normal. Early detection of cancer is very important. We also understand recommendations regarding breast cancer screening are controversial. Please discuss with your primary care provider which strategy is best for you and whether a mammogram is right for you. Your imaging studies and report will be kept on file at [facility] as part of your permanent medical record and are available for your continuing care. Thank you for allowing us to help in meeting your health care needs. Sincerely, Dr. Fabian Interpreting Radiologist [facility] (Normal over 40) documented in this encounter [facility] 05-18-2022 History of Presen t illness Narrative Radiology Service Progress Note PATIENT NAME: Sneha De La Fuente DATE OF SERVICE: May 18, 2022 TIME: 5:28 PM PATIENT IDENTITY VERIFICATION COMPLETED USING TWO (2) IDENTIFIERS: Name and Date of confirmed by patient verbally. FALL SCREENING: Has the patient had 2 falls in the last year or 1 fall with injury or currently using an Ambulatory Assistive Device (Walker, Cane, Wheelchair, Crutches, etc.)? No PATIENT GENDER DATA: Female. status: : No status: N/A PATIENT RELEVANT IMPLANT DATA REVIEWED: Not Applicable RADIOLOGY DEPARTMENT: Mammography PERIPHERAL IV DATA: Not applicable SIGNED BY: RT Zee(R) May 18, 2022 5:28 PM documented in this encounter [facility] 05-15-2022 History and physical note Sneha De La Fuente is a 41 year old female who presents for annual exam. Due for pap and mammogram. Patient had ablation and still having periods but less heavy. Had TL. BP initially. After visit BP 129/79. ALLERGIES Allergen Reactions Bees Hives, Shortness of Breath PROBLEMS A CHILD ONLY Current Outpatient Medications Medication Sig levonorgestrel(MIRENA 20 MCG/24 HR INTRAUTERINE DEVICE) Use as directed. Yfqcoqyi-Sf-Gjd-Fe-FA ORAL Tab TAKE ONE DAILY albuterol 90 mcg/Actuation INHALATION Aero No current facility-administered medications for this visit. Subjective OB History T0 L1 SAB0 IAB0 Ectopic0 Multiple0 Live Births1 Past Gynecological History: ablation PAST MEDICAL HISTORY Diagnosis Date Unspecified asthma(493.90) PAST SURGICAL HISTORY Procedure Laterality Date PAST SURGICAL HISTORY OF WISDOM TEETH TONSILLECTOMY PRIMARY/SECONDARY <AGE 13 Tonsillectomy/ADNOIDS Social History Tobacco Use Smoking status: Never Smokeless tobacco: Never Substance Use Topics Alcohol use: No Drug use: No FAMILY HISTORY Problem Relation Age of Onset Diabetes Maternal Grandfather Hypertension Maternal Grandmother Arthritis Mother Asthma Mother Arthritis Maternal Grandmother Asthma Maternal Grandmother Asthma Maternal Grandfather Lipids Maternal Grandmother Thyroid Maternal Grandmother Review of Symptoms negative Objective BP 125/79 Pulse 88 Temp (Src) 98.2 (Temporal) Resp 16 Ht 5' 6 (1.68m) Wt 0 lb (0.0kg) SpO2 99% LMP 04/25/2022 Physical Exam - restricted to breast and pelvic exam BREAST - without masses LOG FEEDER: Vulva - normal, Vagina - normal - cervix parous, Pap done, Uterus - midplane, adnexa neg ASSESSMENT/PLAN: 1. Encounter for annual routine gynecological examination - ICD9: V72.31, ICD10: Z01.419 (primary diagnosis) - Completed pelvic and breast exam - Encouraged monthly BSE - Follow up for annual exam in one year. 2. Breast screening - ICD9: V76.10, ICD10: Z12.39 - Completed pelvic and breast exam - Encouraged monthly BSE - Follow up for annual exam in one year. - SHAHNAZ SCREENING 3. Cervical cancer screening - ICD9: V76.2, ICD10: Z12.4 - Completed pelvic and breast exam - Encouraged monthly BSE - Follow up for annual exam in one year. - PAP FLUID CERVICAL SCREENING David Garay MD documented in this encounter [facility] Evaluation note Diagnosis Encounter for annual routine gynecological examination- Primary Breast screening Breast screening, unspecified Cervical cancer screening Screening for malignant neoplasm of the cervix [facility] Diagnosis Breast screening Breast screening, unspecified [facility] Diagnosis Generalized anxiety disorder- Primary Epigastric pain Abdominal pain, epigastric Attention deficit hyperactivity disorder (ADHD), unspecified ADHD type Family hx of colon cancer Family history of malignant neoplasm of gastrointestinal tract Screening for deficiency anemia Screening for other and unspecified deficiency anemia Encounter for screening for diabetes mellitus Screening for diabetes mellitus Screening for lipid disorders Screening for thyroid disorder Encounter for hepatitis C screening test for low risk patient Screening for blood or protein in urine Screening for unspecified condition [facility] Diagnosis Trichomonas infection- Primary Trichomoniasis, unspecified [facility] Diagnosis Epigastric pain- Primary Abdominal pain, epigastric [facility] Encounter for screening mammogram for breast cancer [facility]ative[facility] Diagnostic Procedure Only (Routine) - Pending Review Specialty Diagnoses / Procedures Referred By Contac t Referred To Contact [facility] Diagnoses Breast screening Procedures SHAHNAZ SCREENING SCREENING MAMMOGRAPHY BI 2-VIEW BREAST INC CAD Pap, David Gaston MD [address] [place] [id number] [facility] [address] [place] [address] Referral ID Status Reason Start Date Expiration Date Visits Requested Visits Authorized [id number] Pending Review Auto-Generat ed Referral 2 06/14/2023 1 1 [facility] for referral (narrative)* Diagnostic Procedure Only (Routine) - Closed Specialty Diagnoses / Procedures Referred By Danny britton Referred To Contact [facility] Diagnoses Breast screening Procedures SHAHNAZ SCREENING SCREENING MAMMOGRAPHY BI 2-VIEW BREAST INC CAD Tanisha, David Gaston MD [address] [place] [address] [facility] [address] [place] [address] Referral ID Status Reason Start Date Expiration Date V isits Requested Visits Authorized [id number] Closed Auto-Generate d Referral 07/23/2021 07/22/2022 1 1 [facility] for referral (narrative)* Diagnostic Procedure Only (Routine) - New Request Specialty Diagnoses / Procedures Referred By Danny britton Referred To Contact [facility] Diagnoses Encounter for screening mammogram for breast cancer Procedures SHAHNAZ SCREENING W NOLAN SCREENING DIGITAL BREAST TOMOSYNTHESIS BI SCREENING MAMMOGRAPHY BI 2-VIEW BREAST INC CAD Juan Carlos Zambrano CLE[employer].EDITORIAL DIRECTOR [address] [place] [address] [facility] [address] [place] [address] Referral ID Status Reason Start Date Expiration Date Visits Requested Visits Authorized [id number] New Request Auto-Generat ed Referral 07/10/2025 1 1 Electronically signed by Juan Carlos Zambrano [employer].EDITORIAL DIRECTOR at 06/10/2024 9:56 AM EST [facility] for visit Narrative* Diagnostic Procedure Only (Routine) - Closed Specialty Diagnoses / Procedures Referred By Danny britton Referred To Contact [facility] Diagnoses Breast screening Procedures SHAHNAZ SCREENING SCREENING MAMMOGRAPHY BI 2-VIEW BREAST INC CAD David Garay MD [address] [place] [address] [facility] [address] [place] [address] Referral ID Status Reason Start Date Expiration Date V isits Requested Visits Authorized [id number] Closed Auto-Generate d Referral 07/23/2021 07/22/[address] [facility] Reason for Referral Specialty Diagnoses / Procedures Referred By Danny britton Referred To Contact Diagnoses Epigastric pain Family hx of colon cancer Procedures CONSULT TO GASTROENTEROLOGY OFFICE/OUTPATIENT [facility] HIGH MDM 60-74 MINUTES Juan Carlos Zambrano APRN.EDITORIAL DIRECTOR [address] [place] [address] [facility] [address] [place] [address] Referral ID Status Reason Start Date Expiration Date Visits Requested Visits Authorized [id number] Authorized PCP Requested Referral 08/28/2022 08/28/2023 1 1 Summary Purpose Family History No Family History Records FoundNo Family History Records Found Advance Directives No Advanced Directives Records FoundNo Advanced Directives Records Found Additional Source Comments Source Comments (unrecognize d section and content) In the event this informatio n is protected by the Federal Confidentiality of Alcohol and Drug Abuse Patient Records regulations: The Federal rules restrict any use of the information to criminally investigate or prosecute any alcohol or drug abuse patient.[facility] the event this information is protected by the Federal Confidentiality of Alcohol and Drug Abuse Patient Records regulations: The Federal rules restrict any use of the information to criminally investigate or prosecute any alcohol or drug abuse patient.[facility] the event this information is protected by the Federal Confidentiality of Alcohol and Drug Abuse Patient Records regulations: The Federal rules restrict any use of the information to criminally investigate or prosecute any alcohol or drug abuse patient.[facility] the event this information is protected by the Federal Confidentiality of Alcohol and Drug Abuse Patient Records regulations: The Federal rules restrict any use of the information to criminally investigate or prosecute any alcohol or drug abuse patient.[facility] the event this information is protected by the Federal Confidentiality of Alcohol and Drug Abuse Patient Records regulations: The Federal rules restrict any use of the information to criminally investigate or prosecute any alcohol or drug abuse patient.[facility] the event this information is protected by the Federal Confidentiality of Alcohol and Drug Abuse Patient Records regulations: The Federal rules restrict any use of the information to criminally investigate or prosecute any alcohol or drug abuse patient.[facility] the event this information is protected by the Federal Confidentiality of Alcohol and Drug Abuse Patient Records regulations: The Federal rules restrict any use of the information to criminally investigate or prosecute any alcohol or drug abuse patient.[facility] the event this information is protected by the Federal Confidentiality of Alcohol and Drug Abuse Patient Records regulations: The Federal rules restrict any use of the information to criminally investigate or prosecute any alcohol or drug abuse patient.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 Procedures OFFICE/OUTPATIENT ESTABLISHED MOD MDM 30-39 MIN NEW PATIENT Self Pap, David Gaston MD [address] [place] [address] Referral ID Status Reason Start Date Expiration Date Visits Re quested Visits Authorized [id number] Closed 07/23/2021 07/22/2022 1 1 Reason Comments Wellness Reason Comments Results Reason Comments Abdominal Pain Nausea Care Teams (unrecognized sec tion and content) Pen Rider Relationship Specialty Start Date End Date Pcp, No PCP - General 02/04/22 08/22/22 Pen Rider Relationship Specialty Start Date End Date Pcp, No PCP - General 02/04/22 08/22/22 Pen Rider Relationship Specialty Start Date End Date Pcp, No PCP - General 02/04/22 08/22/22 Pen Rider Relationship Specialty Start Date End Date Juan Carlos Zambrano, [employer].EDITORIAL DIRECTOR [address] [place] [address] PCP - General Internal Medicine 08/28/22 Pen Rider Relationship Specialty Start Date End Date Juan Carlos Zambrano, [employer].EDITORIAL DIRECTOR [address] [place] [address] PCP - General Internal Medicine 08/28/22 Pen Rider Relationship Specialty Start Date End Date Juan Carlos Zambrano, [employer].EDITORIAL DIRECTOR [address] [place] [address] PCP - General Internal Medicine 08/28/22 Pen Rider Relationship Specialty Start Date End Date Gabriel Cueva DO [address] [place] [id number] PCP - General 05/20/15 Pen Rider Relationship Specialty Start Date End Date Juan Carlos Zambrano, [employer].EDITORIAL DIRECTOR [address] [place], [place] [id number] PCP - General Internal Medicine 08/28/22 Pen Rider Relationship Specialty Start Date End Date Juan Carlos Zambrano, [employer].EDITORIAL DIRECTOR [address] [place], [place] [phone] PCP - General Internal Medicine 08/28/22 Scheduled Active and Recently Administ ered Medications (unrecognized section and content) Medication Order 01/30/2024 01/31/2024 02/01/2024 sucralfate (Carafate) tablet 1 g (COMPLETED) 1 g, Oral, Once, On Sun02/01/24 at 1945, For 1 dose, Substituted for Sucralfate suspension. Give on an empty stomach (1 hr before meals, at bedtime). Separate all other meds by at least 2 hours (exception: antacids may be given only 30 minutes apart). 1952 (Given - Provid er: Linda Neal RN) INFORMATION SOURCE (unrecogn ized section and content) DATE CREATED AUTHOR 02/07/2024 [facility] DATE CREATED AUTHOR AUTHOR'S GAEL ATJENNIFER 06/16/2024 [facility] FOR RECORDS PERTAINING TO PATIENTS WHO ARE OR HAVE BEEN ENROLLED IN A CHEMICAL DEPENDENCY/SUBSTANCEABUSE PROGRAM, SOME INFORMATION MAY BE OMITTED. This clinical summary was aggregated from multiple sources. Caution should be exercised in using it in the provision of clinical care. This summary normalizes information from multiple sources, and as a consequence, information in this document may materially change the coding, format and clinical context of patient data. In addition, data may be omitted in some cases. CLINICAL DECISIONS SHOULD BE BASED ON THE PRIMARY CLINICAL RECORDS. [email or web address] [facility]. provides no warranty or guarantee of the accuracy or completeness of information in this document.
[2025-03-26 22:41] LABS: Hematocrit 42.2 % (37-47); Hemoglobin 13.8 g/dL (12.0-15.0); Immature Granulocytes Count 0.030 X10^3/uL (0.0-0.0); Mean Corp Hgb Conc 32.7 g/dL (32-36); Mean Corpuscular Volume 89.4 fL (81-99); Mean Platelet Vol. 10.5 fl (6.2-12.0); NRBC Flagged by Analyzer 0 % (0-5); Platelet Count 260 K/mm3 (150-450); RBC Distribution Width CV 12.7 % (11.6-14.6); RBC Distribution Width SD 42.1 fl (35.1-43.9); Red Blood Count 4.72 M/mm3 (4.2-5.4); White Blood Count 9.4 K/mm3 (4.4-11.0)
[2025-03-26 23:32] LABS: AST(SGOT) 25 U/L (<=31); Alanine Aminotransfer ALT/SGPT 36 U/L (<=34); Albumin, Serum 4.5 g/dL (3.5-5.0); Alkaline Phosphatase 53 U/L (35-104); Anion Gap 11 (5-15); BUN 11 mg/dL (4-19); BUN/Creat Ratio 12.1 RATIO (10-20); Calcium,Total 10.0 mg/dL (7.6-11.0); Carbon Dioxide 25.5 mmol/L (21.0-32.0); Chloride 102 mmol/L (98-108); Cholesterol 239 mg/dL (<=200); Globulin 3.3 g/dL (2.2-4.2); Glucose 94 mg/dL (70-99); Low Density Lipoprotein Calc. 152 mg/dL; Potassium 4.4 mmol/L (3.3-5.1); Triglycerides 71 mg/dL; Very Low Density Lipoprotein 14 mg/dL (5-40); cholesterol:hdl ratio screen 3.27
== END | disposition home or self-care (01) ==
PROVIDERS: PCP Nurse Practitioner; Referring Provider Nurse Practitioner; Visit Provider Nurse Practitioner
DX: Z00.00 Encounter for general adult medical examination without abnormal findings (principal)
CPT/HCPCS: 80053; 80061; 85025